=== PATIENT | female | born 1950 | race African-American/Black ===

== ENCOUNTER 2018-02-02 21:40 | Inpatient (IN) ==
[2018-02-02] MEDS ORDERED: PANTOPRAZOLE 40 MG VIAL IV STA (22:12)
[2018-02-02] MEDS ORDERED: METOCLOPRAMIDE 10 MG/2 ML VIAL IV STA (22:12)
[2018-02-02] MEDS ORDERED: ONDANSETRON 4 MG/2 ML VIAL IV STA (22:12)
[2018-02-02] MEDS ORDERED: METOCLOPRAMIDE 10 MG/2 ML VIAL ONE (22:43)
[2018-02-02] MEDS ORDERED: ONDANSETRON 4 MG/2 ML VIAL ONE (22:43)
[2018-02-02] MEDS ORDERED: PANTOPRAZOLE 40 MG VIAL IV ONE (22:43)
[2018-02-02 23:24] LABS: Basophils % 0.2 % (0.0-0.8); Eosinophils % 0.4 % (0.00-10.9); Hematocrit 35.6 VOL% (35.7-47.0); Immature Granulocytes % 0.4 %; Immature Granulocytes Absolute 0.02 #; Lymphocytes # 1.5 10*3/uL (1.4-4.0); Lymphocytes % 31.5 % (21.3-54.2); Mean Corpuscular HGB Conc 33.7 GM/DL (32-36); Mean Corpuscular Hemoglobin 29 PG (27-34); Mean Corpuscular Volume 85.4 FL (87-102); Mean Platelet Volume 14.5 FL (9.6-12.0); Monocytes # 0.4 10*3/uL (0.11-0.8); Monocytes % 7.2 % (1.7-12.7); Neutrophils # 2.9 10*3/uL (1.4-7.4); Neutrophils % 60.3 % (38.7-73.9); Platelet Count 137 T/CUMM (130-400); Red Blood Count 4.17 MC/CUMM (3.8-5.5); Red Cell Distribution Width 14.6 % (9.3-17.3); White Blood Count 4.9 T/CUMM (4-12)
[2018-02-02 23:46] LABS: Albumin 3.9 G/DL (3.4-5.0); Bilirubin,Total 8.4 MG/DL (0.2-1.0); Calcium 9.9 MG/DL (8.5-10.1); Osmolality,Calculated 277.1 MOS/KG (273-304); Potassium 2.7 MMOL/L (3.5-5.1); Total Protein 7.5 G/DL (6.4-8.3)
[2018-02-02] MEDS ORDERED: INSULIN REGULAR 100 UNIT/ML SUBCUT STA (23:59)
[2018-02-02] MEDS ORDERED: SODIUM CHLORIDE 0.9% 1,000 ML IV STA (23:59)
[2018-02-03] MEDS ORDERED: INSULIN REGULAR 100 UNIT/ML ONE (00:41)
[2018-02-03] MEDS ORDERED: hydrALAZINE 20 MG/1 ML VIAL IV STA (02:32)
[2018-02-03] MEDS ORDERED: hydrALAZINE 20 MG/1 ML VIAL ONE (02:33)
[2018-02-03] MEDS ORDERED: MORPHINE 2 MG/1 ML SYRINGE IV PRN (02:49)
[2018-02-03] MEDS ORDERED: GLUCAGON 1 MG VIAL IM PRN (02:49)
[2018-02-03] MEDS ORDERED: DEXTROSE 50% 25 GM/50 ML VIAL IV PRN (02:49)
[2018-02-03] MEDS ORDERED: HYOSCYAMINE 0.125 MG TABLET PO PRN (02:56)
[2018-02-03] MEDS ORDERED: BECLOMETHASONE 40 MCG/PUFF INHALER 8.7 GM INH PRN (02:56)
[2018-02-03] MEDS ORDERED: ALBUTEROL 2.5 MG/3 ML NEB RESP TX PRN (04:04)
[2018-02-03] MEDS ORDERED: MAGNESIUM OXIDE 400 MG TABLET PO ONE (04:30)
[2018-02-03] MEDS: diphenhydrAMINE CAP 25 MG CAPSULE PO SCH ×4 (04:30→22:27)
[2018-02-03] MEDS: SODIUM CHLORIDE 0.9% 1,000 ML IV SCH ×5 (04:31→22:28)
[2018-02-03] MEDS ORDERED: LIPASE PO SCH (07:30)
[2018-02-03] MEDS ORDERED: PROTEASE PO SCH (07:30)
[2018-02-03] MEDS ORDERED: AMYLASE PO SCH (07:30)
[2018-02-03] MEDS ORDERED: [UNRECOGNIZED DRUG - OTHER] PO SCH (09:00)
[2018-02-03] MEDS ORDERED: CHOLESTYRAMINE 378 GM PO SCH (09:00)
[2018-02-03] MEDS ORDERED: ENOXAPARIN 40 MG/0.4 ML SYRINGE SUBCUT SCH (09:00)
[2018-02-03] MEDS: INSULIN REGULAR 100 UNIT/ML SUBCUT SCH ×4 (09:30→22:28)
[2018-02-03] MEDS: ASPIRIN EC 81 MG TABLET PO SCH (09:33)
[2018-02-03] MEDS: ALLOPURINOL 100 MG TABLET PO SCH (09:33)
[2018-02-03] MEDS: PANTOPRAZOLE 40 MG TABLET PO SCH (09:34)
[2018-02-03] MEDS: METOPROLOL TARTRATE 25 MG TABLET PO SCH (09:34)
[2018-02-03] MEDS: HYDROXYCHLOROQUINE 200 MG TABLET PO SCH ×2 (09:34→22:26)
[2018-02-03] MEDS: LISINOPRIL 20 MG TABLET PO SCH (09:34)
[2018-02-03] MEDS: APIXABAN 5 MG TABLET PO SCH ×2 (09:34→22:27)
[2018-02-03] MEDS: hydroCHLOROthiazide 12.5 MG CAPSULE PO SCH (09:34)
[2018-02-03] MEDS: CHOLECALCIFEROL 1,000 UNIT TABLET PO SCH (09:34)
[2018-02-03] MEDS: CHOLESTYRAMINE 4 GM PACK PO SCH ×3 (11:34→22:28)
[2018-02-03] MEDS: SERTRALINE 50 MG TABLET PO SCH (11:34)
[2018-02-03] MEDS: POTASSIUM CHLORIDE 20 MEQ TABLET PO SCH ×2 (11:34→18:20)
[2018-02-03] MEDS ORDERED: MORPHINE 4 MG/1 ML VIAL IV PRN (14:19)
[2018-02-03] MEDS: INSULIN GLARGINE 100 UNIT/ML SUBCUT SCH (22:27)
[2018-02-03] MEDS: TEMAZEPAM 15 MG CAPSULE PO PRN (22:27)
[2018-02-04] MEDS: diphenhydrAMINE CAP 25 MG CAPSULE PO SCH ×4 (04:00→21:24)
[2018-02-04] MEDS: SODIUM CHLORIDE 0.9% 1,000 ML IV SCH ×3 (05:03→22:28)
[2018-02-04 05:22] LABS: Basophils % 0.9 % (0.0-0.8); Eosinophils # 0.1 10*3/uL (0.0-0.87); Eosinophils % 3.2 % (0.00-10.9); Hematocrit 30.8 VOL% (35.7-47.0); Hemoglobin 10.4 GM/DL (12.0-16.0); Immature Granulocytes % 0.6 %; Immature Granulocytes Absolute 0.02 #; Lymphocytes # 1.5 10*3/uL (1.4-4.0); Lymphocytes % 44.3 % (21.3-54.2); Mean Corpuscular HGB Conc 33.8 GM/DL (32-36); Mean Corpuscular Hemoglobin 29 PG (27-34); Mean Corpuscular Volume 86.5 FL (87-102); Mean Platelet Volume 14.1 FL (9.6-12.0); Monocytes # 0.3 10*3/uL (0.11-0.8); Monocytes % 8.5 % (1.7-12.7); Neutrophils # 1.5 10*3/uL (1.4-7.4); Neutrophils % 42.5 % (38.7-73.9); Platelet Count 109 T/CUMM (130-400); Red Blood Count 3.56 MC/CUMM (3.8-5.5); Red Cell Distribution Width 15.5 % (9.3-17.3); White Blood Count 3.4 T/CUMM (4-12)
[2018-02-04 06:01] LABS: Albumin 2.7 G/DL (3.4-5.0); Bilirubin,Total 6.7 MG/DL (0.2-1.0); Calcium 8.2 MG/DL (8.5-10.1); Total Protein 5.2 G/DL (6.4-8.3)
[2018-02-04] MEDS: POTASSIUM CHLORIDE 20 MEQ TABLET PO PRN ×4 (06:57→13:57)
[2018-02-04] MEDS: INSULIN REGULAR 100 UNIT/ML SUBCUT SCH ×4 (09:30→21:24)
[2018-02-04] MEDS: CHOLECALCIFEROL 1,000 UNIT TABLET PO SCH (09:34)
[2018-02-04] MEDS: hydroCHLOROthiazide 12.5 MG CAPSULE PO SCH (09:34)
[2018-02-04] MEDS: LISINOPRIL 20 MG TABLET PO SCH (09:34)
[2018-02-04] MEDS: APIXABAN 5 MG TABLET PO SCH ×2 (09:34→21:24)
[2018-02-04] MEDS: HYDROXYCHLOROQUINE 200 MG TABLET PO SCH ×2 (09:34→21:24)
[2018-02-04] MEDS: ASPIRIN EC 81 MG TABLET PO SCH (09:34)
[2018-02-04] MEDS: SERTRALINE 50 MG TABLET PO SCH (09:35)
[2018-02-04] MEDS: CHOLESTYRAMINE 4 GM PACK PO SCH ×3 (09:35→21:24)
[2018-02-04] MEDS: PANTOPRAZOLE 40 MG TABLET PO SCH (09:35)
[2018-02-04] MEDS: METOPROLOL TARTRATE 25 MG TABLET PO SCH (09:35)
[2018-02-04] MEDS: ALLOPURINOL 100 MG TABLET PO SCH (09:41)
[2018-02-04] MEDS: INSULIN GLARGINE 100 UNIT/ML SUBCUT SCH (21:24)
[2018-02-05] MEDS: TEMAZEPAM 15 MG CAPSULE PO PRN ×2 (00:19→21:32)
[2018-02-05] MEDS: SODIUM CHLORIDE 0.9% 1,000 ML IV SCH ×3 (04:16→21:34)
[2018-02-05] MEDS: diphenhydrAMINE CAP 25 MG CAPSULE PO SCH ×4 (04:45→21:32)
[2018-02-05] MEDS: INSULIN REGULAR 100 UNIT/ML SUBCUT SCH ×4 (08:12→21:32)
[2018-02-05] MEDS: LISINOPRIL 20 MG TABLET PO SCH (08:12)
[2018-02-05] MEDS: CHOLESTYRAMINE 4 GM PACK PO SCH ×3 (08:12→21:32)
[2018-02-05] MEDS: HYDROXYCHLOROQUINE 200 MG TABLET PO SCH ×2 (08:13→21:32)
[2018-02-05] MEDS: SERTRALINE 50 MG TABLET PO SCH (08:13)
[2018-02-05] MEDS: ASPIRIN EC 81 MG TABLET PO SCH (08:13)
[2018-02-05] MEDS: METOPROLOL TARTRATE 25 MG TABLET PO SCH (08:14)
[2018-02-05] MEDS: ALLOPURINOL 100 MG TABLET PO SCH (08:14)
[2018-02-05] MEDS: hydroCHLOROthiazide 12.5 MG CAPSULE PO SCH (08:14)
[2018-02-05] MEDS: PANTOPRAZOLE 40 MG TABLET PO SCH (08:14)
[2018-02-05] MEDS: CHOLECALCIFEROL 1,000 UNIT TABLET PO SCH (08:14)
[2018-02-05] MEDS ORDERED: MAGNESIUM SULF RIDER 2 GM in PREMIX 1 EACH IV PRN (10:50)
[2018-02-05] MEDS ORDERED: MAGNESIUM SULF RIDER 4 GM in PREMIX 1 EACH IV PRN (10:50)
[2018-02-05] MEDS: ENOXAPARIN 40 MG/0.4 ML SYRINGE SUBCUT SCH (11:52)
[2018-02-05] MEDS: hydrOXYzine HCL 10 MG TABLET PO PRN ×2 (11:52→21:32)
[2018-02-05] MEDS: INSULIN GLARGINE 100 UNIT/ML SUBCUT SCH (21:32)
[2018-02-06] MEDS: diphenhydrAMINE CAP 25 MG CAPSULE PO SCH ×4 (02:24→21:36)
[2018-02-06] MEDS: SODIUM CHLORIDE 0.9% 1,000 ML IV SCH ×2 (05:18→10:17)
[2018-02-06] MEDS: INSULIN REGULAR 100 UNIT/ML SUBCUT SCH ×4 (09:11→21:36)
[2018-02-06] MEDS: hydroCHLOROthiazide 12.5 MG CAPSULE PO SCH (09:12)
[2018-02-06] MEDS: LISINOPRIL 20 MG TABLET PO SCH (09:12)
[2018-02-06] MEDS: SERTRALINE 50 MG TABLET PO SCH (09:13)
[2018-02-06] MEDS: ALLOPURINOL 100 MG TABLET PO SCH (09:13)
[2018-02-06] MEDS: CHOLECALCIFEROL 1,000 UNIT TABLET PO SCH (09:13)
[2018-02-06] MEDS: METOPROLOL TARTRATE 25 MG TABLET PO SCH (09:14)
[2018-02-06] MEDS: ASPIRIN EC 81 MG TABLET PO SCH (09:14)
[2018-02-06] MEDS: HYDROXYCHLOROQUINE 200 MG TABLET PO SCH ×2 (09:14→21:36)
[2018-02-06] MEDS: PANTOPRAZOLE 40 MG TABLET PO SCH (09:14)
[2018-02-06] MEDS: CHOLESTYRAMINE 4 GM PACK PO SCH ×3 (09:14→21:36)
[2018-02-06] MEDS: ENOXAPARIN 40 MG/0.4 ML SYRINGE SUBCUT SCH (10:17)
[2018-02-06] MEDS: hydrOXYzine HCL 10 MG TABLET PO PRN ×2 (13:19→23:00)
[2018-02-06] MEDS: INSULIN GLARGINE 100 UNIT/ML SUBCUT SCH (21:36)
[2018-02-06] MEDS: ONDANSETRON 4 MG/2 ML VIAL IV PRN (21:40)
[2018-02-06] MEDS: TEMAZEPAM 15 MG CAPSULE PO PRN (23:00)
[2018-02-07] MEDS: SODIUM CHLORIDE 0.9% 1,000 ML IV SCH ×3 (00:38→11:38)
[2018-02-07] MEDS: diphenhydrAMINE CAP 25 MG CAPSULE PO SCH ×4 (02:23→21:02)
[2018-02-07 05:26] LABS: Basophils % 0.5 % (0.0-0.8); Eosinophils # 0.1 10*3/uL (0.0-0.87); Eosinophils % 2.3 % (0.00-10.9); Hematocrit 31.1 VOL% (35.7-47.0); Hemoglobin 10.8 GM/DL (12.0-16.0); Immature Granulocytes % 0.3 %; Immature Granulocytes Absolute 0.01 #; Lymphocytes # 1.7 10*3/uL (1.4-4.0); Lymphocytes % 43.3 % (21.3-54.2); Mean Corpuscular HGB Conc 34.7 GM/DL (32-36); Mean Corpuscular Hemoglobin 29 PG (27-34); Mean Corpuscular Volume 84.5 FL (87-102); Monocytes # 0.3 10*3/uL (0.11-0.8); Monocytes % 6.6 % (1.7-12.7); Neutrophils # 1.9 10*3/uL (1.4-7.4); Platelet Count 125 T/CUMM (130-400); Red Blood Count 3.68 MC/CUMM (3.8-5.5); Red Cell Distribution Width 17.1 % (9.3-17.3)
[2018-02-07 05:28] LABS: INR 0.9
[2018-02-07 05:43] LABS: Calcium 8.4 MG/DL (8.5-10.1); Potassium 3.7 MMOL/L (3.5-5.1)
[2018-02-07 05:51] LABS: Hypochromasia 1+; Microcytosis 1+
[2018-02-07 05:52] LABS: Ovalocytes Slight; Platelet Estimate Adequate; Tear Drop Cells Slight
[2018-02-07] MEDS: INSULIN REGULAR 100 UNIT/ML SUBCUT SCH ×4 (07:51→21:02)
[2018-02-07] MEDS: ASPIRIN EC 81 MG TABLET PO SCH (10:21)
[2018-02-07] MEDS: HYDROXYCHLOROQUINE 200 MG TABLET PO SCH ×2 (10:21→21:02)
[2018-02-07] MEDS: PANTOPRAZOLE 40 MG TABLET PO SCH (10:21)
[2018-02-07] MEDS: CHOLESTYRAMINE 4 GM PACK PO SCH ×3 (10:21→21:01)
[2018-02-07] MEDS ORDERED: MIDAZOLAM 2 MG/2 ML VIAL ONE (12:59)
[2018-02-07] MEDS ORDERED: fentaNYL 100 MCG/2 ML VIAL ONE (12:59)
[2018-02-07] MEDS ORDERED: LIDOCAINE 2% 5 ML VIAL ONE (13:05)
[2018-02-07] MEDS ORDERED: ROCURONIUM 100 MG/10 ML VIAL IV ONE (13:05)
[2018-02-07] MEDS ORDERED: PROPOFOL 200 MG/20 ML VIAL IV ONE (13:05)
[2018-02-07] MEDS ORDERED: NEOSTIGMINE 10 MG/10 ML VIAL ONE (13:05)
[2018-02-07] MEDS ORDERED: GLYCOPYRROLATE 0.4 MG/2 ML VIAL ONE (13:05)
[2018-02-07] MEDS ORDERED: GLUCAGON 1 MG VIAL ONE (14:06)
[2018-02-07] MEDS ORDERED: SEVOFLURANE 1 UNIT/15 MINUTE INH ONE (14:14)
[2018-02-07] MEDS: CHOLECALCIFEROL 1,000 UNIT TABLET PO SCH (15:30)
[2018-02-07] MEDS: hydroCHLOROthiazide 12.5 MG CAPSULE PO SCH (15:30)
[2018-02-07] MEDS: ALLOPURINOL 100 MG TABLET PO SCH (15:48)
[2018-02-07] MEDS: LISINOPRIL 20 MG TABLET PO SCH (16:11)
[2018-02-07] MEDS: METOPROLOL TARTRATE 25 MG TABLET PO SCH (16:11)
[2018-02-07] MEDS: SERTRALINE 50 MG TABLET PO SCH (16:12)
[2018-02-07] MEDS: ONDANSETRON 4 MG/2 ML VIAL IV PRN (16:16)
[2018-02-07] MEDS: INSULIN GLARGINE 100 UNIT/ML SUBCUT SCH (21:02)
[2018-02-07] MEDS: TEMAZEPAM 15 MG CAPSULE PO PRN (22:53)
[2018-02-08] MEDS: hydrOXYzine HCL 10 MG TABLET PO PRN ×2 (01:17→13:16)
[2018-02-08] MEDS: HYDROmorphone 2 MG TABLET PO PRN ×2 (01:17→08:36)
[2018-02-08] MEDS: diphenhydrAMINE CAP 25 MG CAPSULE PO SCH ×4 (03:51→21:30)
[2018-02-08] MEDS: ONDANSETRON 4 MG/2 ML VIAL IV PRN (06:42)
[2018-02-08] MEDS: METOPROLOL TARTRATE 25 MG TABLET PO SCH (08:35)
[2018-02-08] MEDS: LISINOPRIL 20 MG TABLET PO SCH (08:35)
[2018-02-08] MEDS: hydroCHLOROthiazide 12.5 MG CAPSULE PO SCH (08:35)
[2018-02-08] MEDS: PANTOPRAZOLE 40 MG TABLET PO SCH (08:36)
[2018-02-08 09:16] LABS: Basophils % 0.5 % (0.0-0.8); Eosinophils # 0.1 10*3/uL (0.0-0.87); Eosinophils % 1.2 % (0.00-10.9); Hematocrit 31.6 VOL% (35.7-47.0); Immature Granulocytes % 0.5 %; Immature Granulocytes Absolute 0.03 #; Lymphocytes # 1.2 10*3/uL (1.4-4.0); Lymphocytes % 20.7 % (21.3-54.2); Mean Corpuscular HGB Conc 34.8 GM/DL (32-36); Mean Corpuscular Hemoglobin 29 PG (27-34); Mean Corpuscular Volume 83.8 FL (87-102); Mean Platelet Volume 13.7 FL (9.6-12.0); Monocytes # 0.4 10*3/uL (0.11-0.8); Monocytes % 7.7 % (1.7-12.7); Neutrophils % 69.4 % (38.7-73.9); Platelet Count 119 T/CUMM (130-400); Red Blood Count 3.77 MC/CUMM (3.8-5.5); White Blood Count 5.8 T/CUMM (4-12)
[2018-02-08 09:46] LABS: Albumin 2.8 G/DL (3.4-5.0); Bilirubin,Total 6.5 MG/DL (0.2-1.0); Calcium 8.9 MG/DL (8.5-10.1); Osmolality,Calculated 275.8 MOS/KG (273-304); Potassium 3.4 MMOL/L (3.5-5.1); Total Protein 5.8 G/DL (6.4-8.3)
[2018-02-08] MEDS: CHOLECALCIFEROL 1,000 UNIT TABLET PO SCH (13:16)
[2018-02-08] MEDS: ALLOPURINOL 100 MG TABLET PO SCH (13:16)
[2018-02-08] MEDS: SERTRALINE 50 MG TABLET PO SCH (13:16)
[2018-02-08] MEDS: HYDROXYCHLOROQUINE 200 MG TABLET PO SCH ×2 (13:16→21:30)
[2018-02-08] MEDS: ASPIRIN EC 81 MG TABLET PO SCH (13:17)
[2018-02-08] MEDS: APIXABAN 5 MG TABLET PO SCH ×3 (13:17→21:29)
[2018-02-08] MEDS: CHOLESTYRAMINE 4 GM PACK PO SCH ×3 (13:19→21:29)
[2018-02-08] MEDS: INSULIN REGULAR 100 UNIT/ML SUBCUT SCH ×4 (13:19→21:30)
[2018-02-08] MEDS: LACTULOSE 20 GM/30 ML UDCUP PO SCH ×2 (16:35→21:29)
[2018-02-08] MEDS: GABAPENTIN 100 MG CAPSULE PO SCH (21:29)
[2018-02-08] MEDS: INSULIN GLARGINE 100 UNIT/ML SUBCUT SCH (21:30)
[2018-02-08] MEDS: TEMAZEPAM 15 MG CAPSULE PO PRN (23:55)
[2018-02-09] MEDS: HYDROmorphone 2 MG TABLET PO PRN (02:17)
[2018-02-09] MEDS: diphenhydrAMINE CAP 25 MG CAPSULE PO SCH ×2 (02:41→08:37)
[2018-02-09] MEDS: LISINOPRIL 20 MG TABLET PO SCH (08:36)
[2018-02-09] MEDS: CHOLECALCIFEROL 1,000 UNIT TABLET PO SCH (08:36)
[2018-02-09] MEDS: LACTULOSE 20 GM/30 ML UDCUP PO SCH (08:36)
[2018-02-09] MEDS: ALLOPURINOL 100 MG TABLET PO SCH (08:36)
[2018-02-09] MEDS: hydroCHLOROthiazide 12.5 MG CAPSULE PO SCH (08:36)
[2018-02-09] MEDS: CHOLESTYRAMINE 4 GM PACK PO SCH (08:36)
[2018-02-09] MEDS: APIXABAN 5 MG TABLET PO SCH (08:37)
[2018-02-09] MEDS: HYDROXYCHLOROQUINE 200 MG TABLET PO SCH (08:37)
[2018-02-09] MEDS: METOPROLOL TARTRATE 25 MG TABLET PO SCH (08:37)
[2018-02-09] MEDS: PANTOPRAZOLE 40 MG TABLET PO SCH (08:37)
[2018-02-09] MEDS: ASPIRIN EC 81 MG TABLET PO SCH (08:37)
[2018-02-09] MEDS: GABAPENTIN 100 MG CAPSULE PO SCH (08:37)
[2018-02-09] MEDS: SERTRALINE 50 MG TABLET PO SCH (08:37)
[2018-02-09] MEDS: INSULIN REGULAR 100 UNIT/ML SUBCUT SCH ×2 (08:40→12:24)
[2018-02-09 11:48] VITALS: BP 140/65
== END 2018-02-09 15:26 | disposition home health service (06) | DRG 435 ==
LOC: N.EDINP 21:40 → N.ED 21:40 → N.TELEN 02-03 03:07 → SUATTDRO 02-03 09:35
PROVIDERS: ADMIT Internal Medicine; ATTEND Internal Medicine

== ENCOUNTER 2018-02-16 19:36 | Inpatient (IN) ==
[2018-02-16] MEDS ORDERED: ONDANSETRON 4 MG/2 ML VIAL IV STA (21:04)
[2018-02-16] MEDS ORDERED: SODIUM CHLORIDE 0.9% 500 ML IV STA (21:04)
[2018-02-16] MEDS ORDERED: PANTOPRAZOLE 40 MG VIAL IV STA (21:04)
[2018-02-16 21:13] LABS: Basophils # 0.1 10*3/uL (0.0-0.2); Basophils % 0.7 % (0.0-0.8); Eosinophils # 0.1 10*3/uL (0.0-0.87); Eosinophils % 0.9 % (0.00-10.9); Hematocrit 31.2 VOL% (35.7-47.0); Hemoglobin 10.2 GM/DL (12.0-16.0); Immature Granulocytes % 0.7 %; Immature Granulocytes Absolute 0.05 #; Lymphocytes # 1.4 10*3/uL (1.4-4.0); Lymphocytes % 18.4 % (21.3-54.2); Mean Corpuscular HGB Conc 32.7 GM/DL (32-36); Mean Corpuscular Hemoglobin 29 PG (27-34); Mean Corpuscular Volume 89.4 FL (87-102); Mean Platelet Volume 14.2 FL (9.6-12.0); Monocytes # 0.5 10*3/uL (0.11-0.8); Monocytes % 6.5 % (1.7-12.7); Neutrophils # 5.6 10*3/uL (1.4-7.4); Neutrophils % 72.8 % (38.7-73.9); Platelet Count 186 T/CUMM (130-400); Red Blood Count 3.49 MC/CUMM (3.8-5.5); Red Cell Distribution Width 15.6 % (9.3-17.3); White Blood Count 7.7 T/CUMM (4-12)
[2018-02-16 21:20] LABS: PT Patient Result 10.3 SECS
[2018-02-16] MEDS ORDERED: ONDANSETRON 4 MG/2 ML VIAL ONE (21:39)
[2018-02-16] MEDS ORDERED: PANTOPRAZOLE 40 MG VIAL IV ONE (21:39)
[2018-02-16 21:55] LABS: Alanine Aminotransferase 81 U/L (13-56); Albumin 3.1 G/DL (3.4-5.0); Alkaline Phosphatase 546 U/L (45-117); Aspartate Amino Transferase 66 U/L (0-37); Blood Urea Nitrogen 14 MG/DL (7-18); Calcium 8.8 MG/DL (8.5-10.1); Glucose 321 MG/DL (74-106); Osmolality,Calculated 285.8 MOS/KG (273-304); Potassium 3.4 MMOL/L (3.5-5.1); Sodium 137 MMOL/L (136-145); Total Protein 6.3 G/DL (6.4-8.3); Troponin I Only < 0.015 NG/ML (0.00-0.045)
[2018-02-16] MEDS ORDERED: MAGNESIUM SULF RIDER 2 GM in PREMIX 1 EACH IV STA (22:10)
[2018-02-16] MEDS ORDERED: POTASSIUM CHLORIDE 20 MEQ TABLET PO STA (22:25)
[2018-02-16 22:55] LABS: Lactic Acid 3.6 MMOL/L (0.4-2.0)
[2018-02-16] MEDS ORDERED: ONDANSETRON 4 MG/2 ML VIAL IV PRN (23:20)
[2018-02-16] MEDS ORDERED: BUTALBITAL/ACETAMIN/CAFFEINE 50-325-40 MG TABLET PO PRN (23:36)
[2018-02-16] MEDS ORDERED: ALBUTEROL 2.5 MG/3 ML NEB RESP TX PRN (23:36)
[2018-02-16] MEDS ORDERED: BECLOMETHASONE 40 MCG/PUFF INHALER 8.7 GM INH PRN (23:36)
[2018-02-16] MEDS ORDERED: PROMETHAZINE 25 MG TABLET PO PRN (23:36)
[2018-02-16] MEDS ORDERED: HYOSCYAMINE 0.125 MG TABLET PO PRN (23:36)
[2018-02-16] MEDS ORDERED: HYDROmorphone 2 MG TABLET PO PRN (23:36)
[2018-02-16] MEDS ORDERED: hydrOXYzine HCL 25 MG TABLET PO PRN (23:36)
[2018-02-17] MEDS ORDERED: POTASSIUM CHLORIDE 20 MEQ TABLET PO ONE (00:16)
[2018-02-17] MEDS ORDERED: MAGNESIUM SULF RIDER 50 ML IV ONE (00:16)
[2018-02-17] MEDS ORDERED: GLUCAGON 1 MG VIAL IM PRN (00:36)
[2018-02-17] MEDS ORDERED: DEXTROSE 50% 25 GM/50 ML VIAL IV PRN (00:36)
[2018-02-17] MEDS: SODIUM CHLORIDE 0.9% 1,000 ML IV SCH ×2 (02:37→16:01)
[2018-02-17 02:44] LABS: Ammonia 76 UMOL/L (11-32)
[2018-02-17 02:58] LABS: Hematocrit 27.8 VOL% (35.7-47.0); Hemoglobin 9.2 GM/DL (12.0-16.0)
[2018-02-17] MEDS: TEMAZEPAM 15 MG CAPSULE PO PRN (02:59)
[2018-02-17] MEDS: GABAPENTIN 100 MG CAPSULE PO SCH ×3 (02:59→21:08)
[2018-02-17] MEDS: METOPROLOL TARTRATE 25 MG TABLET PO SCH ×3 (02:59→21:08)
[2018-02-17] MEDS: HYDROXYCHLOROQUINE 200 MG TABLET PO SCH ×3 (02:59→21:08)
[2018-02-17 06:32] LABS: Basophils % 0.7 % (0.0-0.8); Eosinophils # 0.1 10*3/uL (0.0-0.87); Eosinophils % 1.4 % (0.00-10.9); Hematocrit 24.4 VOL% (35.7-47.0); Immature Granulocytes % 0.5 %; Immature Granulocytes Absolute 0.03 #; Lymphocytes # 1.4 10*3/uL (1.4-4.0); Lymphocytes % 23.1 % (21.3-54.2); Mean Corpuscular HGB Conc 32.8 GM/DL (32-36); Mean Corpuscular Hemoglobin 29 PG (27-34); Mean Corpuscular Volume 89.1 FL (87-102); Mean Platelet Volume 13.9 FL (9.6-12.0); Monocytes # 0.5 10*3/uL (0.11-0.8); Monocytes % 7.9 % (1.7-12.7); Neutrophils # 3.9 10*3/uL (1.4-7.4); Neutrophils % 66.4 % (38.7-73.9); Platelet Count 107 T/CUMM (130-400); Red Blood Count 2.74 MC/CUMM (3.8-5.5); Red Cell Distribution Width 15.6 % (9.3-17.3); White Blood Count 5.8 T/CUMM (4-12)
[2018-02-17 06:38] LABS: PT Patient Result 10.7 SECS
[2018-02-17 07:13] LABS: Albumin 2.5 G/DL (3.4-5.0); Bilirubin,Total 2.6 MG/DL (0.2-1.0); Calcium 8.2 MG/DL (8.5-10.1); Osmolality,Calculated 281.5 MOS/KG (273-304); Potassium 3.9 MMOL/L (3.5-5.1); Total Protein 5.2 G/DL (6.4-8.3)
[2018-02-17] MEDS ORDERED: AMYLASE PO SCH (07:30)
[2018-02-17] MEDS ORDERED: PROTEASE PO SCH (07:30)
[2018-02-17] MEDS ORDERED: LIPASE PO SCH (07:30)
[2018-02-17] MEDS: INSULIN REGULAR 100 UNIT/ML SUBCUT SCH ×4 (08:38→21:00)
[2018-02-17] MEDS: PANTOPRAZOLE 40 MG VIAL IV SCH ×2 (08:43→21:06)
[2018-02-17] MEDS: GLIMEPIRIDE 2 MG TABLET PO SCH (10:13)
[2018-02-17] MEDS: CHOLESTYRAMINE 4 GM PACK PO SCH (10:13)
[2018-02-17] MEDS: hydroCHLOROthiazide 12.5 MG CAPSULE PO SCH (10:14)
[2018-02-17] MEDS: ALLOPURINOL 100 MG TABLET PO SCH (10:14)
[2018-02-17] MEDS: CHOLECALCIFEROL 1,000 UNIT TABLET PO SCH (10:14)
[2018-02-17] MEDS: SERTRALINE 25 MG TABLET PO SCH (10:15)
[2018-02-17] MEDS: POTASSIUM CHLORIDE 10 MEQ TABLET PO SCH (10:15)
[2018-02-17] MEDS: LISINOPRIL 20 MG TABLET PO SCH (10:18)
[2018-02-17 12:13] LABS: Hemoglobin 8.7 GM/DL (12.0-16.0)
[2018-02-17 17:15] LABS: Hemoglobin 7.8 GM/DL (12.0-16.0)
[2018-02-17] MEDS ORDERED: SODIUM CHLORIDE 0.9% 1,000 ML IV PRN (18:45)
[2018-02-17 23:32] LABS: Hematocrit 24.5 VOL% (35.7-47.0)
[2018-02-18] MEDS: SODIUM CHLORIDE 0.9% 1,000 ML IV SCH ×2 (04:19→16:51)
[2018-02-18 05:26] LABS: Basophils % 0.7 % (0.0-0.8); Eosinophils # 0.1 10*3/uL (0.0-0.87); Eosinophils % 3.2 % (0.00-10.9); Hematocrit 25.7 VOL% (35.7-47.0); Hemoglobin 8.6 GM/DL (12.0-16.0); Immature Granulocytes % 0.7 %; Immature Granulocytes Absolute 0.03 #; Lymphocytes # 1.6 10*3/uL (1.4-4.0); Lymphocytes % 37.9 % (21.3-54.2); Mean Corpuscular HGB Conc 33.5 GM/DL (32-36); Mean Corpuscular Hemoglobin 30 PG (27-34); Mean Corpuscular Volume 88.6 FL (87-102); Mean Platelet Volume 13.2 FL (9.6-12.0); Monocytes # 0.3 10*3/uL (0.11-0.8); Monocytes % 7.6 % (1.7-12.7); Neutrophils # 2.2 10*3/uL (1.4-7.4); Neutrophils % 49.9 % (38.7-73.9); Platelet Count 121 T/CUMM (130-400); Red Cell Distribution Width 15.7 % (9.3-17.3); White Blood Count 4.3 T/CUMM (4-12)
[2018-02-18 05:33] LABS: PT Patient Result 10.4 SECS
[2018-02-18 05:56] LABS: Albumin 2.3 G/DL (3.4-5.0); Calcium 8.2 MG/DL (8.5-10.1); Osmolality,Calculated 285.8 MOS/KG (273-304); Potassium 4.4 MMOL/L (3.5-5.1)
[2018-02-18] MEDS: INSULIN REGULAR 100 UNIT/ML SUBCUT SCH ×4 (09:42→21:36)
[2018-02-18] MEDS ORDERED: ONDANSETRON 4 MG/2 ML VIAL ONE (12:34)
[2018-02-18] MEDS ORDERED: PROPOFOL 200 MG/20 ML VIAL IV ONE (12:34)
[2018-02-18] MEDS ORDERED: LIDOCAINE 2% 5 ML VIAL ONE (12:34)
[2018-02-18] MEDS: CHOLESTYRAMINE 4 GM PACK PO SCH (14:31)
[2018-02-18] MEDS: ALLOPURINOL 100 MG TABLET PO SCH (14:31)
[2018-02-18] MEDS: CHOLECALCIFEROL 1,000 UNIT TABLET PO SCH (14:31)
[2018-02-18] MEDS: POTASSIUM CHLORIDE 10 MEQ TABLET PO SCH (14:32)
[2018-02-18] MEDS: hydroCHLOROthiazide 12.5 MG CAPSULE PO SCH (14:32)
[2018-02-18] MEDS: SERTRALINE 25 MG TABLET PO SCH (14:32)
[2018-02-18] MEDS: GLIMEPIRIDE 2 MG TABLET PO SCH (14:32)
[2018-02-18] MEDS: LISINOPRIL 20 MG TABLET PO SCH (14:32)
[2018-02-18] MEDS: GABAPENTIN 100 MG CAPSULE PO SCH ×2 (14:33→21:28)
[2018-02-18] MEDS: HYDROXYCHLOROQUINE 200 MG TABLET PO SCH ×2 (14:33→21:28)
[2018-02-18] MEDS: PANTOPRAZOLE 40 MG VIAL IV SCH ×2 (14:33→21:29)
[2018-02-18] MEDS: METOPROLOL TARTRATE 25 MG TABLET PO SCH ×2 (14:33→21:28)
[2018-02-18] MEDS: TEMAZEPAM 15 MG CAPSULE PO PRN (21:28)
[2018-02-19] MEDS: SODIUM CHLORIDE 0.9% 1,000 ML IV SCH ×2 (03:54→17:51)
[2018-02-19 04:07] LABS: Basophils % 0.6 % (0.0-0.8); Eosinophils # 0.1 10*3/uL (0.0-0.87); Eosinophils % 2.1 % (0.00-10.9); Hematocrit 25.5 VOL% (35.7-47.0); Hemoglobin 8.2 GM/DL (12.0-16.0); Immature Granulocytes % 0.5 %; Immature Granulocytes Absolute 0.03 #; Lymphocytes # 1.6 10*3/uL (1.4-4.0); Lymphocytes % 25.4 % (21.3-54.2); Mean Corpuscular HGB Conc 32.2 GM/DL (32-36); Mean Corpuscular Hemoglobin 29 PG (27-34); Mean Corpuscular Volume 90.7 FL (87-102); Mean Platelet Volume 13.6 FL (9.6-12.0); Monocytes # 0.4 10*3/uL (0.11-0.8); Monocytes % 6.6 % (1.7-12.7); Neutrophils % 64.8 % (38.7-73.9); Platelet Count 121 T/CUMM (130-400); Red Blood Count 2.81 MC/CUMM (3.8-5.5); Red Cell Distribution Width 15.5 % (9.3-17.3); White Blood Count 6.2 T/CUMM (4-12)
[2018-02-19 04:14] LABS: PT Patient Result 10.5 SECS
[2018-02-19 04:40] LABS: Calcium 8.3 MG/DL (8.5-10.1); Osmolality,Calculated 283.8 MOS/KG (273-304); Potassium 3.9 MMOL/L (3.5-5.1)
[2018-02-19] MEDS: INSULIN REGULAR 100 UNIT/ML SUBCUT SCH ×4 (07:43→21:04)
[2018-02-19] MEDS: hydroCHLOROthiazide 12.5 MG CAPSULE PO SCH (08:23)
[2018-02-19] MEDS: METOPROLOL TARTRATE 25 MG TABLET PO SCH ×2 (08:23→21:01)
[2018-02-19] MEDS: CHOLECALCIFEROL 1,000 UNIT TABLET PO SCH (08:23)
[2018-02-19] MEDS: SERTRALINE 25 MG TABLET PO SCH (08:23)
[2018-02-19] MEDS: GLIMEPIRIDE 2 MG TABLET PO SCH (08:23)
[2018-02-19] MEDS: POTASSIUM CHLORIDE 10 MEQ TABLET PO SCH (08:24)
[2018-02-19] MEDS: GABAPENTIN 100 MG CAPSULE PO SCH ×2 (08:24→21:03)
[2018-02-19] MEDS: LISINOPRIL 20 MG TABLET PO SCH (08:24)
[2018-02-19] MEDS: HYDROXYCHLOROQUINE 200 MG TABLET PO SCH ×2 (08:24→21:01)
[2018-02-19] MEDS: ALLOPURINOL 100 MG TABLET PO SCH (08:24)
[2018-02-19] MEDS: PANTOPRAZOLE 40 MG VIAL IV SCH ×2 (08:31→21:03)
[2018-02-19] MEDS: CHOLESTYRAMINE 4 GM PACK PO SCH (08:34)
[2018-02-19] MEDS: TEMAZEPAM 15 MG CAPSULE PO PRN (21:13)
[2018-02-20] MEDS: SODIUM CHLORIDE 0.9% 1,000 ML IV SCH ×2 (09:07→20:10)
[2018-02-20] MEDS: CHOLESTYRAMINE 4 GM PACK PO SCH (09:08)
[2018-02-20] MEDS: HYDROXYCHLOROQUINE 200 MG TABLET PO SCH ×2 (09:09→20:11)
[2018-02-20] MEDS: ALLOPURINOL 100 MG TABLET PO SCH (09:09)
[2018-02-20] MEDS: GABAPENTIN 100 MG CAPSULE PO SCH ×2 (09:09→20:10)
[2018-02-20] MEDS: GLIMEPIRIDE 2 MG TABLET PO SCH (09:09)
[2018-02-20] MEDS: METOPROLOL TARTRATE 25 MG TABLET PO SCH ×2 (09:09→20:10)
[2018-02-20] MEDS: CHOLECALCIFEROL 1,000 UNIT TABLET PO SCH (09:09)
[2018-02-20] MEDS: SERTRALINE 25 MG TABLET PO SCH (09:09)
[2018-02-20] MEDS: POTASSIUM CHLORIDE 10 MEQ TABLET PO SCH (09:10)
[2018-02-20] MEDS: INSULIN REGULAR 100 UNIT/ML SUBCUT SCH ×4 (09:10→21:42)
[2018-02-20] MEDS: LISINOPRIL 20 MG TABLET PO SCH (09:10)
[2018-02-20] MEDS: hydroCHLOROthiazide 12.5 MG CAPSULE PO SCH (09:10)
[2018-02-20] MEDS: PANTOPRAZOLE 40 MG VIAL IV SCH ×2 (09:11→20:11)
[2018-02-21] MEDS: INSULIN REGULAR 100 UNIT/ML SUBCUT SCH ×2 (07:56→11:14)
[2018-02-21] MEDS: CHOLESTYRAMINE 4 GM PACK PO SCH (08:35)
[2018-02-21] MEDS: GLIMEPIRIDE 2 MG TABLET PO SCH (08:37)
[2018-02-21] MEDS: SERTRALINE 25 MG TABLET PO SCH (08:37)
[2018-02-21] MEDS: POTASSIUM CHLORIDE 10 MEQ TABLET PO SCH (08:37)
[2018-02-21] MEDS: hydroCHLOROthiazide 12.5 MG CAPSULE PO SCH (08:37)
[2018-02-21] MEDS: CHOLECALCIFEROL 1,000 UNIT TABLET PO SCH (08:37)
[2018-02-21] MEDS: PANTOPRAZOLE 40 MG VIAL IV SCH (08:37)
[2018-02-21] MEDS: GABAPENTIN 100 MG CAPSULE PO SCH (08:38)
[2018-02-21] MEDS: METOPROLOL TARTRATE 25 MG TABLET PO SCH (08:38)
[2018-02-21] MEDS: LISINOPRIL 20 MG TABLET PO SCH (08:38)
[2018-02-21] MEDS: ALLOPURINOL 100 MG TABLET PO SCH (08:38)
[2018-02-21] MEDS: HYDROXYCHLOROQUINE 200 MG TABLET PO SCH (08:38)
[2018-02-21 09:04] LABS: Hematocrit 27.3 VOL% (35.7-47.0); Hemoglobin 8.8 GM/DL (12.0-16.0)
[2018-02-21] MEDS: SODIUM CHLORIDE 0.9% 1,000 ML IV SCH (09:31)
[2018-02-21 11:47] VITALS: BP 129/70
== END 2018-02-21 12:09 | disposition home health service (06) | DRG 378 ==
LOC: N.EDINP 19:36 → N.ED 19:36 → SUATTDRO 23:16 → N.5E 02-17 00:43 → SUATTDRO 02-18 14:05
PROVIDERS: ADMIT Internal Medicine; ATTEND Internal Medicine

== ENCOUNTER 2018-05-03 10:33 | Inpatient (IN) ==
[~2018-05-03 10:33] MED LIST: LIDOCAINE 100 MG/5 ML SYRINGE ONE; MINERAL OIL/PETROLATUM OPH OINT 3.5 GM TUBE ONE; ONDANSETRON 4 MG/2 ML VIAL ONE; PHENYLEPHRINE 1 MG/10 ML SYRINGE IV ONE; PROPOFOL 200 MG/20 ML VIAL IV ONE
[2018-05-03] MEDS ORDERED: SODIUM CHLORIDE 0.9% 1,000 ML IV SCH (11:30)
[2018-05-03 12:12] LABS: Basophils % 0.9 % (0.0-0.8); Eosinophils % 1.3 % (0.00-10.9); Hematocrit 31.6 VOL% (35.7-47.0); Immature Granulocytes % 0.4 %; Immature Granulocytes Absolute 0.01 #; Mean Corpuscular HGB Conc 31.6 GM/DL (32-36); Mean Corpuscular Hemoglobin 28 PG (27-34); Mean Corpuscular Volume 87.8 FL (87-102); Mean Platelet Volume 11.7 FL (9.6-12.0); Monocytes # 0.1 10*3/uL (0.11-0.8); Monocytes % 4.7 % (1.7-12.7); Neutrophils # 1.2 10*3/uL (1.4-7.4); Neutrophils % 51.7 % (38.7-73.9); Platelet Count 132 T/CUMM (130-400); Red Cell Distribution Width 13.9 % (9.3-17.3); White Blood Count 2.3 T/CUMM (4-12)
[2018-05-03 12:20] LABS: PT Patient Result 10.2 SECS; Partial Thromboplastin Time 27.7 SECS (0-40)
[2018-05-03] MEDS ORDERED: GLUCAGON 1 MG VIAL ONE (14:12)
[2018-05-03] MEDS ORDERED: fentaNYL 100 MCG/2 ML VIAL ONE (15:35)
[2018-05-03] MEDS ORDERED: MIDAZOLAM 2 MG/2 ML VIAL ONE (15:36)
[2018-05-03] MEDS ORDERED: SUGAMMADEX 200 MG/2 ML VIAL IV ONE (15:36)
[2018-05-03] MEDS ORDERED: SEVOFLURANE 1 UNIT/15 MINUTE INH ONE (15:36)
[2018-05-03] MEDS: ONDANSETRON 4 MG/2 ML VIAL IV PRN (16:29)
[2018-05-03] MEDS: LACTATED RINGERS 1,000 ML IV SCH (17:33)
[2018-05-03] MEDS ORDERED: PROMETHAZINE 25 MG TABLET PO PRN (18:22)
[2018-05-03] MEDS ORDERED: ALBUTEROL 2.5 MG/3 ML NEB RESP TX PRN (18:22)
[2018-05-03] MEDS ORDERED: ONDANSETRON ODT 4 MG TABLET PO PRN (18:22)
[2018-05-03] MEDS ORDERED: HYDROmorphone 2 MG TABLET PO PRN (18:22)
[2018-05-03] MEDS ORDERED: CHOLESTYRAMINE 4 GM PACK PO PRN (18:22)
[2018-05-03] MEDS: CIPROFLOXACIN INJ 400 MG in PREMIX 1 EACH IV SCH (18:34)
[2018-05-03] MEDS: HYDROmorphone 2 MG/1 ML VIAL IV PRN ×2 (19:07→19:31)
[2018-05-03] MEDS: GABAPENTIN 100 MG CAPSULE PO SCH (20:12)
[2018-05-03] MEDS: LACTULOSE 20 GM/30 ML UDCUP PO SCH (20:12)
[2018-05-03] MEDS: HYDROXYCHLOROQUINE 200 MG TABLET PO SCH (20:12)
[2018-05-04] MEDS ORDERED: ACETAMINOPHEN 500 MG TABLET PO ONE (00:39)
[2018-05-04] MEDS: CIPROFLOXACIN INJ 400 MG in PREMIX 1 EACH IV SCH ×2 (05:55→17:58)
[2018-05-04] MEDS ORDERED: ACETAMINOPHEN 500 MG TABLET PO PRN (06:21)
[2018-05-04] MEDS: POTASSIUM CHLORIDE 20 MEQ TABLET PO SCH (10:24)
[2018-05-04] MEDS: LACTATED RINGERS 1,000 ML IV SCH (10:24)
[2018-05-04] MEDS: METOPROLOL TARTRATE 25 MG TABLET PO SCH (10:24)
[2018-05-04] MEDS: PANTOPRAZOLE 40 MG TABLET PO SCH (10:26)
[2018-05-04] MEDS: GABAPENTIN 100 MG CAPSULE PO SCH ×2 (10:26→21:30)
[2018-05-04] MEDS: hydroCHLOROthiazide 12.5 MG CAPSULE PO SCH (10:26)
[2018-05-04] MEDS: LISINOPRIL 20 MG TABLET PO SCH (10:26)
[2018-05-04] MEDS: SERTRALINE 50 MG TABLET PO SCH (10:26)
[2018-05-04] MEDS: LACTULOSE 20 GM/30 ML UDCUP PO SCH ×2 (10:26→21:30)
[2018-05-04] MEDS: HYDROXYCHLOROQUINE 200 MG TABLET PO SCH ×2 (10:26→21:30)
[2018-05-04] MEDS: ALLOPURINOL 100 MG TABLET PO SCH (10:26)
[2018-05-04] MEDS: SODIUM CHLORIDE 0.45% 1,000 ML IV SCH (10:28)
[2018-05-04] MEDS ORDERED: DIAZEPAM 5 MG TABLET PO ONE (11:34)
[2018-05-04] MEDS ORDERED: PANTOPRAZOLE 40 MG VIAL IV ONE (11:34)
[2018-05-04] MEDS ORDERED: PROMETHAZINE 25 MG/1 ML VIAL ONE (14:18)
[2018-05-04] MEDS ORDERED: DEXAMETHASONE 4 MG/1 ML VIAL ONE (14:22)
[2018-05-04] MEDS ORDERED: PROPOFOL 200 MG/20 ML VIAL IV ONE (14:46)
[2018-05-04] MEDS ORDERED: fentaNYL 100 MCG/2 ML VIAL ONE (14:47)
[2018-05-04] MEDS ORDERED: MIDAZOLAM 2 MG/2 ML VIAL ONE (14:47)
[2018-05-04] MEDS ORDERED: ONDANSETRON 4 MG/2 ML VIAL ONE (14:47)
[2018-05-04] MEDS ORDERED: SODIUM CHLORIDE 0.9% 100 ML IV ONE (14:47)
[2018-05-04] MEDS ORDERED: hydrALAZINE 20 MG/1 ML VIAL IM ONE (14:54)
[2018-05-04] MEDS ORDERED: hydrALAZINE 20 MG/1 ML VIAL ONE (15:10)
[2018-05-04] MEDS ORDERED: hydrALAZINE 20 MG/1 ML VIAL IV ONE (15:18)
[2018-05-04] MEDS: HYDROmorphone 2 MG/1 ML VIAL IV PRN ×2 (15:46→22:05)
[2018-05-04] MEDS: ONDANSETRON 4 MG/2 ML VIAL IV PRN (18:14)
[2018-05-05] MEDS: hydrOXYzine HCL 25 MG TABLET PO PRN ×2 (01:56→20:44)
[2018-05-05] MEDS: CIPROFLOXACIN INJ 400 MG in PREMIX 1 EACH IV SCH ×2 (06:24→17:57)
[2018-05-05] MEDS: hydroCHLOROthiazide 12.5 MG CAPSULE PO SCH (08:50)
[2018-05-05] MEDS: LACTULOSE 20 GM/30 ML UDCUP PO SCH ×2 (08:50→20:44)
[2018-05-05] MEDS: LISINOPRIL 20 MG TABLET PO SCH (08:51)
[2018-05-05] MEDS: SERTRALINE 50 MG TABLET PO SCH (08:51)
[2018-05-05] MEDS: GABAPENTIN 100 MG CAPSULE PO SCH ×2 (08:51→20:44)
[2018-05-05] MEDS: ALLOPURINOL 100 MG TABLET PO SCH (08:52)
[2018-05-05] MEDS: METOPROLOL TARTRATE 25 MG TABLET PO SCH (08:52)
[2018-05-05] MEDS: HYDROXYCHLOROQUINE 200 MG TABLET PO SCH ×2 (08:52→20:44)
[2018-05-05] MEDS: POTASSIUM CHLORIDE 20 MEQ TABLET PO SCH (08:52)
[2018-05-05] MEDS: PANTOPRAZOLE 40 MG TABLET PO SCH (08:52)
[2018-05-05] MEDS: ONDANSETRON 4 MG/2 ML VIAL IV PRN (09:02)
[2018-05-05] MEDS: HYDROmorphone 2 MG/1 ML VIAL IV PRN ×2 (10:59→16:50)
[2018-05-06] MEDS: HYDROmorphone 2 MG/1 ML VIAL IV PRN ×2 (03:59→11:12)
[2018-05-06] MEDS: ONDANSETRON 4 MG/2 ML VIAL IV PRN (04:01)
[2018-05-06] MEDS: CIPROFLOXACIN INJ 400 MG in PREMIX 1 EACH IV SCH (06:07)
[2018-05-06] MEDS: SODIUM CHLORIDE 0.45% 1,000 ML IV SCH (07:50)
[2018-05-06] MEDS: LACTULOSE 20 GM/30 ML UDCUP PO SCH (08:51)
[2018-05-06] MEDS: HYDROXYCHLOROQUINE 200 MG TABLET PO SCH (08:51)
[2018-05-06] MEDS: SERTRALINE 50 MG TABLET PO SCH (08:52)
[2018-05-06] MEDS: hydroCHLOROthiazide 12.5 MG CAPSULE PO SCH (08:53)
[2018-05-06] MEDS: LISINOPRIL 20 MG TABLET PO SCH (08:54)
[2018-05-06] MEDS: POTASSIUM CHLORIDE 20 MEQ TABLET PO SCH (08:54)
[2018-05-06] MEDS: GABAPENTIN 100 MG CAPSULE PO SCH (08:54)
[2018-05-06] MEDS: PANTOPRAZOLE 40 MG TABLET PO SCH (08:55)
[2018-05-06] MEDS: ALLOPURINOL 100 MG TABLET PO SCH (08:55)
[2018-05-06] MEDS: METOPROLOL TARTRATE 25 MG TABLET PO SCH (08:56)
[2018-05-06 14:34] VITALS: BP 135/66
== END 2018-05-06 14:35 | disposition home health service (06) | DRG 445 ==
LOC: N.GILAB 10:33 → N.4E 10:33
PROVIDERS: ADMIT Internal Medicine Gastroenterology; ATTEND Internal Medicine Gastroenterology

== ENCOUNTER 2019-06-10 16:49 | Inpatient (IN) ==
[2019-06-10] MEDS ORDERED: MORPHINE 4 MG/1 ML VIAL IM STA (17:59)
[2019-06-10] MEDS ORDERED: ONDANSETRON 4 MG/2 ML VIAL IM STA (17:59)
[2019-06-10] MEDS ORDERED: MORPHINE 4 MG/1 ML VIAL IV STA (18:39)
[2019-06-10] MEDS ORDERED: ONDANSETRON 4 MG/2 ML VIAL IV STA (18:40)
[2019-06-10 18:48] LABS: Albumin 1.8 G/DL (3.4-5.0); Bilirubin,Total 0.7 MG/DL (0.2-1.0); Calcium 7.7 MG/DL (8.5-10.1); Osmolality,Calculated 282.5 MOS/KG (273-304); Total Protein 5.2 G/DL (6.4-8.3)
[2019-06-10 18:55] LABS: Basophils % 0.1 % (0.0-0.8); Eosinophils # 0.1 10*3/uL (0.0-0.87); Eosinophils % 0.5 % (0.00-10.9); Hematocrit 24.8 VOL% (35.7-47.0); Hemoglobin 8.2 GM/DL (12.0-16.0); Immature Granulocytes % 0.9 %; Immature Granulocytes Absolute 0.09 #; Lymphocytes # 0.9 10*3/uL (1.4-4.0); Lymphocytes % 8.8 % (21.3-54.2); Mean Corpuscular HGB Conc 33.1 GM/DL (32-36); Monocytes % 6.9 % (1.7-12.7); Neutrophils % 82.8 % (38.7-73.9); Platelet Count 140 T/CUMM (130-400); Red Blood Count 2.48 MC/CUMM (3.8-5.5); Red Cell Distribution Width 22.8 % (9.3-17.3); White Blood Count 9.6 T/CUMM (4-12)
[2019-06-10 19:04] LABS: PT Patient Result 11.1 SECS
[2019-06-10] MEDS ORDERED: POTASSIUM CHLORIDE 20 MEQ TABLET PO ONE (20:25)
[2019-06-10] MEDS ORDERED: DEXTROSE 50% 25 GM/50 ML VIAL IV PRN (20:44)
[2019-06-10] MEDS ORDERED: GLUCAGON 1 MG VIAL IM PRN (20:44)
[2019-06-10 22:20] LABS: Anisocytosis 1+; Hypochromasia 1+; Microcytosis 1+; Platelet Estimate Adequate
[2019-06-11] MEDS: HydrOXYzine PAMOATE 25 MG CAPSULE PO PRN ×3 (00:14→21:22)
[2019-06-11] MEDS: MORPHINE 4 MG/1 ML VIAL IV PRN ×2 (00:14→21:18)
[2019-06-11] MEDS: SODIUM CHLORIDE 0.9% 1,000 ML IV SCH ×2 (00:23→20:14)
[2019-06-11] MEDS: INSULIN REGULAR 100 UNIT/ML SUBCUT SCH ×5 (00:24→20:15)
[2019-06-11] MEDS: MAGNESIUM SULF RIDER 2 GM in PREMIX 1 EACH IV PRN (01:17)
[2019-06-11 01:18] LABS: Apearance,Urine CLEAR (Clear); Bacteria,Urine Occasional /HPF (Few); Bilirubin,Urine Negative (Negative); Blood, Urine Negative (Negative); Glucose,Urine (UA) Negative (Negative); Hyaline Casts,Urine 8 /LPF (0-3); Ketones,Urine Negative (Negative); Nitrite,Urine Negative (Negative); Protein,Urine Negative; RBC,Urine 1 /HPF (0-4); Squamous Epithelial Cell,Urine Occasional /HPF (0-10); Urine Color Yellow (Yellow); Urine Specific Gravity 1.015 (1.001-1.035); Urine Urobilinogen < 2.0 EU/DL (0.2-1.0); WBC,Urine 7 /HPF (0-6)
[2019-06-11 07:29] LABS: Basophils % 0.2 % (0.0-0.8); Eosinophils # 0.1 10*3/uL (0.0-0.87); Eosinophils % 0.9 % (0.00-10.9); Hematocrit 22.3 VOL% (35.7-47.0); Hemoglobin 7.4 GM/DL (12.0-16.0); Immature Granulocytes Absolute 0.09 #; Lymphocytes # 0.6 10*3/uL (1.4-4.0); Lymphocytes % 6.6 % (21.3-54.2); Mean Corpuscular HGB Conc 33.2 GM/DL (32-36); Mean Corpuscular Volume 100.9 FL (87-102); Mean Platelet Volume 12.5 FL (9.6-12.0); Monocytes % 8.3 % (1.7-12.7); Platelet Count 117 T/CUMM (130-400); Red Blood Count 2.21 MC/CUMM (3.8-5.5); Red Cell Distribution Width 23.2 % (9.3-17.3); White Blood Count 9.4 T/CUMM (4-12)
[2019-06-11 07:46] LABS: Albumin 1.6 G/DL (3.4-5.0); Bilirubin,Total 0.6 MG/DL (0.2-1.0); Calcium 7.6 MG/DL (8.5-10.1); Osmolality,Calculated 279.5 MOS/KG (273-304); Total Protein 4.8 G/DL (6.4-8.3)
[2019-06-11 08:01] LABS: Platelet Estimate Adequate
[2019-06-11 08:04] LABS: Anisocytosis 3+; Basophilic Stippling 1+; Poikilocytosis 1+
[2019-06-11 08:05] LABS: Helmet Cells Few; Macrocytosis 1+; Polychromasia Slight
[2019-06-11] MEDS: PANTOPRAZOLE 40 MG TABLET PO SCH (08:52)
[2019-06-11] MEDS: POTASSIUM CHLORIDE 20 MEQ TABLET PO PRN ×2 (08:52→12:37)
[2019-06-11] MEDS ORDERED: METHOCARBAMOL 500 MG TABLET PO PRN (09:29)
[2019-06-11] MEDS: FUROSEMIDE 20 MG TABLET PO SCH (10:25)
[2019-06-11] MEDS: DILTIAZEM CD 120 MG CAPSULE PO SCH (10:26)
[2019-06-11] MEDS: SERTRALINE 50 MG TABLET PO SCH (10:26)
[2019-06-11 11:57] LABS: % Iron Saturation 21.3 % (18-50); Ferritin 203.5 ng/ml (8-252)
[2019-06-11 12:17] LABS: Folate 7.2 NG/ML (5.4-24.0); Vitamin B12 > 2000 PG/ML (211-911)
[2019-06-11] MEDS: LIPASE PROTEASE AMYLASE PO SCH ×2 (13:00→16:10)
[2019-06-11] MEDS ORDERED: ALBUTEROL 2.5 MG/3 ML NEB RESP TX PRN (19:00)
[2019-06-12 05:00] LABS: Basophils % 0.1 % (0.0-0.8); Eosinophils # 0.2 10*3/uL (0.0-0.87); Eosinophils % 1.6 % (0.00-10.9); Hematocrit 21.6 VOL% (35.7-47.0); Hemoglobin 7.2 GM/DL (12.0-16.0); Immature Granulocytes Absolute 0.09 #; Lymphocytes # 0.8 10*3/uL (1.4-4.0); Mean Corpuscular HGB Conc 33.3 GM/DL (32-36); Mean Corpuscular Volume 101.9 FL (87-102); Mean Platelet Volume 13.2 FL (9.6-12.0); Monocytes % 7.3 % (1.7-12.7); Platelet Count 122 T/CUMM (130-400); Red Blood Count 2.12 MC/CUMM (3.8-5.5); Red Cell Distribution Width 23.4 % (9.3-17.3); White Blood Count 9.2 T/CUMM (4-12)
[2019-06-12 05:30] LABS: Calcium 7.5 MG/DL (8.5-10.1); Osmolality,Calculated 281.3 MOS/KG (273-304)
[2019-06-12 05:39] LABS: Hypochromasia 1+; Platelet Estimate Normal
[2019-06-12 05:40] LABS: Macrocytosis Slight
[2019-06-12] MEDS: INSULIN REGULAR 100 UNIT/ML SUBCUT SCH ×4 (07:56→20:16)
[2019-06-12] MEDS: SERTRALINE 50 MG TABLET PO SCH (09:22)
[2019-06-12] MEDS: LIPASE PROTEASE AMYLASE PO SCH ×3 (09:22→17:23)
[2019-06-12] MEDS: CHOLECALCIFEROL 1,000 UNIT TABLET PO SCH (09:23)
[2019-06-12] MEDS: FUROSEMIDE 20 MG TABLET PO SCH (09:23)
[2019-06-12] MEDS: PANTOPRAZOLE 40 MG TABLET PO SCH (09:23)
[2019-06-12] MEDS: DILTIAZEM CD 120 MG CAPSULE PO SCH (09:23)
[2019-06-12] MEDS: MORPHINE 4 MG/1 ML VIAL IV PRN ×2 (11:00→17:23)
[2019-06-12] MEDS: SODIUM CHLORIDE 0.9% 1,000 ML IV SCH ×2 (11:34→16:12)
[2019-06-12] MEDS: HydrOXYzine PAMOATE 25 MG CAPSULE PO PRN (17:27)
[2019-06-13 07:52] LABS: Basophils % 0.2 % (0.0-0.8); Eosinophils # 0.3 10*3/uL (0.0-0.87); Eosinophils % 2.3 % (0.00-10.9); Immature Granulocytes Absolute 0.14 #; Lymphocytes # 1.3 10*3/uL (1.4-4.0); Lymphocytes % 9.6 % (21.3-54.2); Mean Corpuscular HGB Conc 33.1 GM/DL (32-36); Mean Platelet Volume 11.8 FL (9.6-12.0); Monocytes % 5.4 % (1.7-12.7); Neutrophils % 81.5 % (38.7-73.9); Platelet Count 133 T/CUMM (130-400); Red Cell Distribution Width 21.1 % (9.3-17.3)
[2019-06-13] MEDS ORDERED: LACTATED RINGERS 1,000 ML IV SCH (08:00)
[2019-06-13 08:07] LABS: White Blood Count 13.4 T/CUMM (4-12)
[2019-06-13 08:08] LABS: Hemoglobin 11.6 GM/DL (12.0-16.0); Red Blood Count 3.61 MC/CUMM (3.8-5.5)
[2019-06-13] MEDS ORDERED: LIDOCAINE 100 MG/5 ML SYRINGE ONE (09:00)
[2019-06-13] MEDS ORDERED: PROPOFOL 200 MG/20 ML VIAL IV ONE (09:00)
[2019-06-13] MEDS ORDERED: LORATADINE 10 MG TABLET PO PRN (09:15)
[2019-06-13] MEDS: INSULIN REGULAR 100 UNIT/ML SUBCUT SCH ×3 (15:09→21:00)
[2019-06-13] MEDS: LIPASE PROTEASE AMYLASE PO SCH ×2 (15:10→18:27)
[2019-06-13] MEDS: MORPHINE 4 MG/1 ML VIAL IV PRN (15:49)
[2019-06-13] MEDS: DILTIAZEM CD 120 MG CAPSULE PO SCH (16:45)
[2019-06-13] MEDS: CHOLECALCIFEROL 1,000 UNIT TABLET PO SCH (16:46)
[2019-06-13] MEDS: FUROSEMIDE 20 MG TABLET PO SCH (16:46)
[2019-06-13] MEDS: SERTRALINE 50 MG TABLET PO SCH (16:46)
[2019-06-13] MEDS: MAGNESIUM SULF RIDER 2 GM in PREMIX 1 EACH IV PRN (16:53)
[2019-06-13] MEDS: PANTOPRAZOLE 40 MG TABLET PO SCH (18:23)
[2019-06-13] MEDS: SODIUM CHLORIDE 0.9% 1,000 ML IV SCH (18:59)
[2019-06-14] MEDS: MORPHINE 4 MG/1 ML VIAL IV PRN ×3 (01:09→18:40)
[2019-06-14] MEDS: INSULIN REGULAR 100 UNIT/ML SUBCUT SCH ×4 (07:28→20:11)
[2019-06-14] MEDS: LIPASE PROTEASE AMYLASE PO SCH ×3 (08:59→18:36)
[2019-06-14] MEDS: NITROFURANTOIN MACRO/MONO 100 MG CAPSULE PO SCH ×2 (09:00→20:07)
[2019-06-14] MEDS: DILTIAZEM CD 120 MG CAPSULE PO SCH (09:00)
[2019-06-14] MEDS: FUROSEMIDE 20 MG TABLET PO SCH (09:00)
[2019-06-14] MEDS: SERTRALINE 50 MG TABLET PO SCH (09:01)
[2019-06-14] MEDS: CHOLECALCIFEROL 1,000 UNIT TABLET PO SCH (09:01)
[2019-06-14] MEDS: PANTOPRAZOLE 40 MG TABLET PO SCH ×2 (09:01→20:07)
[2019-06-14] MEDS: SODIUM CHLORIDE 0.9% 1,000 ML IV SCH (10:32)
[2019-06-14] MEDS: ONDANSETRON 4 MG/2 ML VIAL IV PRN (20:07)
[2019-06-15] MEDS: SODIUM CHLORIDE 0.9% 1,000 ML IV SCH ×2 (05:03→05:10)
[2019-06-15] MEDS: MORPHINE 4 MG/1 ML VIAL IV PRN ×3 (05:04→14:20)
[2019-06-15] MEDS: ONDANSETRON 4 MG/2 ML VIAL IV PRN ×2 (05:07→11:38)
[2019-06-15] MEDS: INSULIN REGULAR 100 UNIT/ML SUBCUT SCH ×2 (07:23→11:12)
[2019-06-15] MEDS: LIPASE PROTEASE AMYLASE PO SCH ×2 (08:04→11:44)
[2019-06-15] MEDS: CHOLECALCIFEROL 1,000 UNIT TABLET PO SCH (11:44)
[2019-06-15] MEDS: PANTOPRAZOLE 40 MG TABLET PO SCH (11:45)
[2019-06-15] MEDS: FUROSEMIDE 20 MG TABLET PO SCH (11:45)
[2019-06-15] MEDS: NITROFURANTOIN MACRO/MONO 100 MG CAPSULE PO SCH (11:46)
[2019-06-15] MEDS: SERTRALINE 50 MG TABLET PO SCH (11:46)
[2019-06-15] MEDS: DILTIAZEM CD 120 MG CAPSULE PO SCH (11:47)
[2019-06-15 12:05] VITALS: BP 130/75
[2019-06-15] MEDS ORDERED: HEPARIN LOCK FLUSH 500 UNIT/5 ML SYRINGE IV ONE (14:15)
== END 2019-06-15 15:30 | disposition swing bed (61) | DRG 556 ==
LOC: EDUNIT# → EDBD → N.ED 16:49 → N.EDINP 16:49 → SUATTDRO 20:15 → N.EDINP 21:17 → N.4E 23:04
PROVIDERS: ADMIT Internal Medicine; ATTEND Internal Medicine Geriatric Medicine

== ENCOUNTER 2019-06-28 11:35 | Inpatient (IN) ==
[2019-06-28] MEDS ORDERED: PROMETHAZINE 25 MG/1 ML VIAL IM PRN (15:08)
[2019-06-28] MEDS ORDERED: HydrOXYzine PAMOATE 25 MG CAPSULE PO PRN (15:12)
[2019-06-28] MEDS ORDERED: DEXTROSE 50% 25 GM/50 ML VIAL IV PRN (15:53)
[2019-06-28] MEDS ORDERED: GLUCAGON 1 MG VIAL IM PRN (15:53)
[2019-06-28] MEDS: INSULIN LISPRO 100 UNIT/ML SUBCUT SCH ×2 (15:59→21:44)
[2019-06-28] MEDS: SODIUM CHLORIDE 0.9% 1,000 ML IV SCH (16:14)
[2019-06-28] MEDS: POTASSIUM CHLORIDE RIDER 10 MEQ in PREMIX 1 EACH IV PRN ×5 (16:14→23:25)
[2019-06-28] MEDS: HYDROmorphone 2 MG/1 ML VIAL IV PRN (17:24)
[2019-06-28 17:34] LABS: Thyroid Stimulating Hormone 3.43 uIU/ml (0.358-3.74)
[2019-06-28] MEDS: ONDANSETRON 4 MG/2 ML VIAL IV PRN ×2 (21:15→21:34)
[2019-06-28] MEDS ORDERED: SODIUM CHLORIDE 0.9% 1,000 ML IV ONE (21:40)
[2019-06-28] MEDS ORDERED: ONDANSETRON 4 MG/2 ML VIAL IV ONE (21:42)
[2019-06-28] MEDS ORDERED: MAGNESIUM SULF RIDER 2 GM in PREMIX 1 EACH IV PRN (22:00)
[2019-06-28] MEDS ORDERED: MAGNESIUM SULF RIDER 4 GM in PREMIX 1 EACH IV PRN (22:00)
[2019-06-28] MEDS ORDERED: FAMOTIDINE INJ 40 MG in SODIUM CHLORIDE 0.9% 100 ML IV SCH (22:00)
[2019-06-28] MEDS ORDERED: FAMOTIDINE 20 MG/2 ML VIAL IV ONE (22:00)
[2019-06-29] MEDS: HYDROmorphone 2 MG/1 ML VIAL IV PRN ×2 (00:39→16:31)
[2019-06-29 04:57] LABS: Basophils % 0.1 % (0.0-0.8); Eosinophils % 0.1 % (0.00-10.9); Hematocrit 33.2 VOL% (35.7-47.0); Hemoglobin 11.2 GM/DL (12.0-16.0); Immature Granulocytes % 1.2 %; Immature Granulocytes Absolute 0.23 #; Lymphocytes # 0.9 10*3/uL (1.4-4.0); Lymphocytes % 4.6 % (21.3-54.2); Mean Corpuscular HGB Conc 33.7 GM/DL (32-36); Mean Corpuscular Volume 97.9 FL (87-102); Monocytes % 4.7 % (1.7-12.7); Neutrophils % 89.3 % (38.7-73.9); Platelet Count 66 T/CUMM (130-400); Red Blood Count 3.39 MC/CUMM (3.8-5.5); White Blood Count 19.8 T/CUMM (4-12)
[2019-06-29 05:05] LABS: Osmolality,Calculated 292.7 MOS/KG (273-304)
[2019-06-29 05:21] LABS: Hypochromasia 1+; Lymphocytes 1 % (20-55); Platelet Estimate Decreased; Segmented Neutrophils 97 % (50-85); Total Cells Counted 100
[2019-06-29] MEDS: SODIUM CHLORIDE 0.9% 1,000 ML IV SCH (07:20)
[2019-06-29] MEDS ORDERED: PROMETHAZINE 25 MG/1 ML VIAL IV PRN (08:18)
[2019-06-29] MEDS: INSULIN LISPRO 100 UNIT/ML SUBCUT SCH ×4 (08:23→21:22)
[2019-06-29] MEDS: POTASSIUM CHLORIDE INJ 20 MEQ in LACTATED RINGERS 1,000 ML IV SCH ×2 (10:57→21:53)
[2019-06-29] MEDS: FAMOTIDINE INJ 40 MG in SODIUM CHLORIDE 0.9% 100 ML IV SCH ×2 (10:57→21:17)
[2019-06-29] MEDS: METOCLOPRAMIDE 10 MG TABLET PO SCH ×3 (12:42→21:18)
[2019-06-29 14:39] LABS: Apearance,Urine CLEAR (Clear); Bilirubin,Urine Negative (Negative); Blood, Urine Moderate mg/dL (Negative); Glucose,Urine (UA) 50 mg/dL (Negative); Hyaline Casts,Urine 3 /LPF (0-3); Ketones,Urine Negative (Negative); Nitrite,Urine Negative (Negative); Protein,Urine 30 MG/DL; RBC,Urine 3 /HPF (0-4); Urine Color Amber (Yellow); Urine Specific Gravity 1.027 (1.001-1.035); WBC,Urine 6 /HPF (0-6)
[2019-06-30 04:37] LABS: Basophils % 0.1 % (0.0-0.8); Hematocrit 31.9 VOL% (35.7-47.0); Hemoglobin 10.7 GM/DL (12.0-16.0); Immature Granulocytes % 1.1 %; Immature Granulocytes Absolute 0.22 #; Lymphocytes # 0.7 10*3/uL (1.4-4.0); Lymphocytes % 3.4 % (21.3-54.2); Mean Corpuscular HGB Conc 33.5 GM/DL (32-36); Mean Corpuscular Volume 98.2 FL (87-102); Monocytes % 3.9 % (1.7-12.7); Neutrophils % 91.5 % (38.7-73.9); Platelet Count 85 T/CUMM (130-400); Red Blood Count 3.25 MC/CUMM (3.8-5.5); Red Cell Distribution Width 20.2 % (9.3-17.3); White Blood Count 20.8 T/CUMM (4-12)
[2019-06-30] MEDS: ONDANSETRON 4 MG/2 ML VIAL IV PRN ×2 (04:45→18:39)
[2019-06-30 05:01] LABS: Hypochromasia Slight; Lymphocytes 1 % (20-55); Ovalocytes Slight; Platelet Estimate Decreased; Segmented Neutrophils 96 % (50-85); Total Cells Counted 100
[2019-06-30 05:15] LABS: Calcium 8.5 MG/DL (8.5-10.1); Osmolality,Calculated 296.7 MOS/KG (273-304)
[2019-06-30] MEDS: INSULIN LISPRO 100 UNIT/ML SUBCUT SCH ×4 (09:39→21:10)
[2019-06-30] MEDS: METOCLOPRAMIDE 10 MG TABLET PO SCH ×4 (09:42→20:46)
[2019-06-30] MEDS: FAMOTIDINE INJ 40 MG in SODIUM CHLORIDE 0.9% 100 ML IV SCH ×2 (09:42→20:46)
[2019-06-30] MEDS: POTASSIUM CHLORIDE INJ 20 MEQ in LACTATED RINGERS 1,000 ML IV SCH (15:09)
[2019-06-30] MEDS: HYDROmorphone 2 MG/1 ML VIAL IV PRN (18:39)
[2019-07-01] MEDS: POTASSIUM CHLORIDE INJ 10 MEQ in LACTATED RINGERS 1,000 ML IV SCH ×2 (04:50→15:54)
[2019-07-01 05:43] LABS: Basophils % 0.2 % (0.0-0.8); Hematocrit 31.3 VOL% (35.7-47.0); Hemoglobin 10.1 GM/DL (12.0-16.0); Immature Granulocytes % 1.1 %; Immature Granulocytes Absolute 0.17 #; Lymphocytes # 0.4 10*3/uL (1.4-4.0); Lymphocytes % 2.6 % (21.3-54.2); Mean Corpuscular HGB Conc 32.3 GM/DL (32-36); Mean Corpuscular Volume 99.7 FL (87-102); Monocytes % 0.6 % (1.7-12.7); Neutrophils % 95.5 % (38.7-73.9); Red Blood Count 3.14 MC/CUMM (3.8-5.5); Red Cell Distribution Width 20.3 % (9.3-17.3); White Blood Count 15.9 T/CUMM (4-12)
[2019-07-01 05:50] LABS: Platelet Count 53 T/CUMM (130-400)
[2019-07-01 06:18] LABS: Calcium 8.8 MG/DL (8.5-10.1); Osmolality,Calculated 296.7 MOS/KG (273-304)
[2019-07-01 06:24] LABS: Platelet Estimate Decreased; Polychromasia Few; Segmented Neutrophils 100 % (50-85); Total Cells Counted 100
[2019-07-01] MEDS: INSULIN LISPRO 100 UNIT/ML SUBCUT SCH ×4 (08:31→21:16)
[2019-07-01] MEDS ORDERED: SODIUM CHLORIDE 0.9% 1,000 ML IV SCH (09:00)
[2019-07-01] MEDS: METOCLOPRAMIDE 10 MG TABLET PO SCH ×4 (09:20→21:17)
[2019-07-01] MEDS: FAMOTIDINE INJ 40 MG in SODIUM CHLORIDE 0.9% 100 ML IV SCH ×2 (09:20→21:16)
[2019-07-01 09:45] LABS: Albumin 1.7 G/DL (3.4-5.0); Bilirubin,Total 1.1 MG/DL (0.2-1.0); Calcium 8.8 MG/DL (8.5-10.1)
[2019-07-01] MEDS: HYDROmorphone 2 MG/1 ML VIAL IV PRN (16:59)
[2019-07-01] MEDS: SODIUM CHLORIDE 0.45% 1,000 ML IV SCH (17:06)
[2019-07-02] MEDS: SODIUM CHLORIDE 0.45% 1,000 ML IV SCH ×2 (03:22→15:46)
[2019-07-02 03:52] LABS: Basophils # 0.1 10*3/uL (0.0-0.2); Basophils % 0.3 % (0.0-0.8); Hematocrit 30.3 VOL% (35.7-47.0); Hemoglobin 9.7 GM/DL (12.0-16.0); Immature Granulocytes % 1.3 %; Immature Granulocytes Absolute 0.34 #; Lymphocytes # 0.4 10*3/uL (1.4-4.0); Lymphocytes % 1.5 % (21.3-54.2); Mean Corpuscular Volume 99.7 FL (87-102); Monocytes % 2.2 % (1.7-12.7); Neutrophils % 94.7 % (38.7-73.9); Red Blood Count 3.04 MC/CUMM (3.8-5.5); Red Cell Distribution Width 20.6 % (9.3-17.3)
[2019-07-02 03:59] LABS: Platelet Count 44 T/CUMM (130-400)
[2019-07-02 04:08] LABS: Calcium 8.6 MG/DL (8.5-10.1); Osmolality,Calculated 293.1 MOS/KG (273-304)
[2019-07-02 05:13] LABS: Lymphocytes 4 % (20-55); Segmented Neutrophils 94 % (50-85); Total Cells Counted 100
[2019-07-02 05:38] LABS: Hypochromasia 1+; Platelet Estimate Decreased; Polychromasia Few; Schistocytes Few; Target Cells Few
[2019-07-02] MEDS: INSULIN LISPRO 100 UNIT/ML SUBCUT SCH ×3 (07:50→15:45)
[2019-07-02] MEDS: FAMOTIDINE INJ 40 MG in SODIUM CHLORIDE 0.9% 100 ML IV SCH ×2 (08:42→20:05)
[2019-07-02] MEDS: METOCLOPRAMIDE 10 MG TABLET PO SCH ×3 (08:42→16:26)
[2019-07-02] MEDS: HYDROmorphone 2 MG/1 ML VIAL IV PRN (13:45)
[2019-07-03] MEDS: SODIUM CHLORIDE 0.45% 1,000 ML IV SCH ×2 (00:16→09:34)
[2019-07-03] MEDS: INSULIN LISPRO 100 UNIT/ML SUBCUT SCH ×4 (00:17→18:40)
[2019-07-03] MEDS: METOCLOPRAMIDE 10 MG TABLET PO SCH ×2 (00:17→08:30)
[2019-07-03] MEDS: FAMOTIDINE INJ 40 MG in SODIUM CHLORIDE 0.9% 100 ML IV SCH ×2 (08:57→20:50)
[2019-07-03] MEDS: HYDROmorphone 2 MG/1 ML VIAL IV PRN (15:13)
[2019-07-04] MEDS: ONDANSETRON 4 MG/2 ML VIAL IV PRN ×2 (00:01→09:39)
[2019-07-04] MEDS: INSULIN LISPRO 100 UNIT/ML SUBCUT SCH ×5 (02:32→20:40)
[2019-07-04] MEDS: FAMOTIDINE INJ 40 MG in SODIUM CHLORIDE 0.9% 100 ML IV SCH ×2 (08:35→20:19)
[2019-07-04] MEDS ORDERED: TUBERCULIN SKIN TEST 0.1 ML SYRINGE INTRADERM ONE (13:57)
[2019-07-04] MEDS: HEPARIN LOCK FLUSH 500 UNIT/5 ML SYRINGE IV SCH (16:10)
[2019-07-04] MEDS: HYDROmorphone 2 MG/1 ML VIAL IV PRN (18:17)
[2019-07-05] MEDS: HEPARIN LOCK FLUSH 500 UNIT/5 ML SYRINGE IV SCH ×2 (02:40→16:16)
[2019-07-05] MEDS: INSULIN LISPRO 100 UNIT/ML SUBCUT SCH ×4 (08:10→21:39)
[2019-07-05] MEDS: FAMOTIDINE INJ 40 MG in SODIUM CHLORIDE 0.9% 100 ML IV SCH ×2 (10:07→21:47)
[2019-07-05] MEDS: HYDROmorphone 2 MG/1 ML VIAL IV PRN ×2 (16:13→22:47)
[2019-07-06] MEDS: HEPARIN LOCK FLUSH 500 UNIT/5 ML SYRINGE IV SCH ×2 (02:45→14:30)
[2019-07-06] MEDS: FAMOTIDINE INJ 40 MG in SODIUM CHLORIDE 0.9% 100 ML IV SCH ×2 (09:32→21:46)
[2019-07-06] MEDS: HYDROmorphone 2 MG/1 ML VIAL IV PRN (18:04)
[2019-07-07] MEDS: HEPARIN LOCK FLUSH 500 UNIT/5 ML SYRINGE IV SCH (01:30)
[2019-07-07 09:10] VITALS: BP 90/59
[2019-07-07] MEDS: FAMOTIDINE INJ 40 MG in SODIUM CHLORIDE 0.9% 100 ML IV SCH (09:17)
[2019-07-07] MEDS: HYDROmorphone 2 MG/1 ML VIAL IV PRN (10:28)
== END 2019-07-07 14:46 | disposition hospice, inpatient (51) | DRG 683 ==
LOC: N.4E → SUATTDRO 15:01 → SUPCPDRO 15:01 → OBSVTOIN 15:01
PROVIDERS: ADMIT Internal Medicine; ATTEND Internal Medicine

== ENCOUNTER 2019-07-07 14:41 | Inpatient (IN) ==
[2019-07-07] MEDS ORDERED: LORazepam 2 MG/1 ML VIAL IV PRN (15:43)
[2019-07-07 17:24] VITALS: BP 86/57
[2019-07-07] MEDS: HYDROmorphone 2 MG/1 ML VIAL IV PRN (18:24)
[2019-07-08] MEDS: HYDROmorphone 2 MG/1 ML VIAL IV PRN (05:10)
== END 2019-07-08 19:43 | disposition expired | DRG 951 ==
LOC: N.4E 14:41 → SUATTDRO 14:41
PROVIDERS: ADMIT Internal Medicine; ATTEND Internal Medicine